=== PATIENT | male | born 1980 | race Caucasian/White ===

== ENCOUNTER 2024-03-02 08:26 | Emergency (ER) | payer BC, OTHER | END 2024-03-02 10:59 | disposition home or self-care (01) | LOC: JD.ED 08:26 | DX: S46.202A Unspecified injury of muscle, fascia and tendon of other parts of biceps, left arm, initial encounter (principal); F17.210 Nicotine dependence, cigarettes, uncomplicated; X50.0XXA Overexertion from strenuous movement or load, initial encounter; Y93.89 Activity, other specified | CPT/HCPCS: 73200-26-LT; 73200-LT; 99283 ==